=== PATIENT | male | born 1980 | race Caucasian/White ===

== ENCOUNTER 2019-10-13 21:38 | Emergency (ER) | payer OTHER ==
[~2019-10-13] VITALS: Ht 172.7 cm; Wt 60.3 kg
[2019-10-13] MEDS ORDERED: NOHOMEMEDICATIONS (21:44)
[2019-10-13] MEDS ORDERED: KEFLEX500 M1 PO (23:31)
[2019-10-13 23:47] VITALS: BP 126/85
== END 2019-10-13 23:48 | disposition home or self-care (01) ==
LOC: ER 21:38
DX: S51.812A Laceration without foreign body of left forearm, initial encounter (principal); I10 Essential (primary) hypertension; W26.8XXA Contact with other sharp object(s), not elsewhere classified, initial encounter; Y93.89 Activity, other specified; Y92.89 Other specified places as the place of occurrence of the external cause; Y99.8 Other external cause status